=== PATIENT | female | born 1940 | race Caucasian/White ===

== ENCOUNTER 2016-04-24 19:37 | Emergency (ER) | payer MEDICARE ==
[~2016-04-24] VITALS: Ht 167.6 cm; Wt 68.0 kg
[~2016-04-24 19:37] MED LIST: DIAZ5 PO; LEVO88TA2 PO; MECL-62 PO; PAXI20TA PO; SIMV10TA PO; ZOFR4TAB PO
[2016-04-24 19:39] VITALS: BP 105/56; PULSE 95; RESP 16; TEMP 98; O2SAT 98
== END 2016-04-24 20:26 | disposition left against medical advice (07) ==
LOC: NED 19:37
DX: R11.0 Nausea (principal); Z53.21 Procedure and treatment not carried out due to patient leaving prior to being seen by health care provider
CPT/HCPCS: 99281

== ENCOUNTER → 2017-03-27 | Outpatient (CLI) | payer MEDICARE ==
--- NOTE | 2017-03-27 14:13 | RADRPT ---
EXAM DATE/TIME: 03/27/2017 12:57 [place] COMPARISON: No previous studies available for comparison. EXTERNAL COMPARISON : [facility], MR BRAIN W&W/O CONTRAST, March 02, 2017 INDICATIONS : Right sided tremors. Parkinsons disease. DOSE: 4.75 mCi Ioflupane Iodine-123 in 2.5 ml total volume MEDICATION(S): 130 mg Potasium Iodine PO one hour prior to injection SPECT IMAGIN.5 hrs. IMAGNG: SPECT/CT imaging with fusion was performed. RADIATION DOSE: 30.27 CTDIvol (mGy) MEDICAL HISTORY : None SURGICAL HISTORY : Tonsillectomy. ENCOUNTER: Initial ACUITY: 7 - 11 months PAIN SCALE: 0/10 LOCATION: Head. TECHNIQUE: SPECT imaging of the brain was performed in sagittal, axial and coronal planes. Attenuation correctio n was performed with computed tomography and both the attenuation correction and non-attenuation rolan ected data sets were reviewed. FINDINGS: Borderline positive with only radiotracer confined to the head of the caudate. CONCLUSION: Borderline positive as described above George Carlson MD FACR on March 27, 2017 at 14:01 Board Certified Radiologist. This report was verified electronically.
== END ==
LOC: HRAD 07:51
PROVIDERS: ATTEND Specialist
DX: G20 Parkinson's disease (principal)
CPT/HCPCS: 78607; A9584

== ENCOUNTER 2017-10-04 11:02 | Observation (INO) | payer MEDICARE ==
[2017-10-04] VITALS (7 sets, daily range): BP systolic 111–135; BP diastolic 59–68; PULSE 72–81; RESP 16–21; TEMP 97.4–98.6; O2SAT 96–100
[~2017-10-04] VITALS: Ht 163.8 cm; Wt 55.0 kg
[2017-10-04] MEDS ORDERED: DIAZ2TAB PO (12:13)
[2017-10-04] MEDS ORDERED: LEVO.075 PO (12:13)
[2017-10-04] MEDS ORDERED: PROP10TA6 PO (12:13)
[2017-10-04 12:32] LABS: AUTOMATED NEUTROPHIL # 4.7 TH/MM3 (1.8-7.7); BASOPHIL # 0.1 TH/MM3 (0-0.2); BASOPHIL % 1.4 % (0.0-2.0); EOSINOPHIL # 0.1 TH/MM3 (0-0.4); HEMATOCRIT 39.5 % (35.0-46.0); HEMOGLOBIN 13.3 GM/DL (11.6-15.3); LYMPH % 23.1 % (9.0-44.0); LYMPHOCYTE # 1.6 TH/MM3 (1.0-4.8); MEAN CELL VOLUME 92.8 FL (80.0-100.0); MEAN CORPUSCULAR HEMOGLOBIN 31.3 PG (27.0-34.0); MEAN CORPUSCULAR HGB CONC 33.7 % (32.0-36.0); MEAN PLATELET VOLUME 8.2 FL (7.0-11.0); MONO % 4.8 % (0.0-8.0); MONOCYTE # 0.3 TH/MM3 (0-0.9); NEUT % 69.7 % (16.0-70.0); PLATELET COUNT 318 TH/MM3 (150-450); RED BLOOD COUNT 4.26 MIL/MM3 (4.00-5.30); RED CELL DISTRIBUTION WIDTH 13.6 % (11.6-17.2); WHITE BLOOD COUNT 6.7 TH/MM3 (4.0-11.0)
--- NOTE | 2017-10-04 12:39 | PD ---
HPI Chief Complaint: Anxiety Time Seen by Provider: 11:19 Travel History International Travel<30 days: No Contact w/Intl Traveler<30days: No Traveled to known affect area: No History of Present Illness HPI This is a 77 year old female who presents to the emergency department with tremor. Pt. reports that over the past week she has had increasing tremor on the right side of her body to the point where she feels like she can't control her movements, and she has difficulty sitting still. Her symptoms are constant and have been worsening. She says she has been having some resting tremor in her right hand and was evaluated for possible Parkinson's disease. She follows with Dr. Canada and saw him earlier this week. She had been weaned off of Klonopin 2 weeks ago so she was concerned some of her worsening symptoms were due to benzodiazepene withdrawal so she was initiated on Diazepam and Propanolol for essential tremor. Symptoms have worsened despite this treatment. PFSH Past Medical History Blood Disorders: No Anxiety: Yes (PANIC ATTACKS) Heart Rhythm Problems: No Cancer: No Cardiac Catheterization: Yes Cardiovascular Problems: Yes High Cholesterol: Yes Congestive Heart Failure: No Cerebrovascular Accident: No Diabetes: No Diminished Hearing: No Endocrine: Yes GERD: No Genitourinary: Yes (Hx of HEMATURIA) Hiatal Hernia: No Hypertension: No Immune Disorder: No Kidney Stones: Yes Musculoskeletal: Yes Neurologic: Yes (MENIERES DISEASE, CAROTID STENOSIS) Psychiatric: Yes Reproductive: No Respiratory: No Immunizations Current: Yes (SHINGLES) Migraines: No Myocardial Infarction: No Renal Failure: No Sleep Apnea: Yes Thyroid Disease: Yes (HYPOTHYROID) Ulcer: No Tetanus Vaccination: Unknown Influenza Vaccination: Yes Menopausal: Yes : 2 Para: 2 Past Surgical History Abdominal Surgery: No Cardiac Surgery: No Coronary Artery Bypass Graft: No Ear Surgery: No Endocrine Surgery: No Eye Surgery: No Genitourinary Surgery: No Gynecologic Surgery: No Oral Surgery: Yes (TONSILLECTOMY) Thoracic Surgery: No Tonsillectomy: Yes Other Surgery: Yes (TONSILLECTOMY) Social History Alcohol Use: No Tobacco Use: No (quit after college years smoked cigs) Substance Use: No Allergies-Medications (Allergen,Severity, Reaction): Coded Allergies: No Known Allergies (Verified , 04/24/16) Reported Meds & Prescriptions Reported Meds & Active Scripts Active Reported Propranolol (Propranolol HCl) 10 Mg Tab 10 Mg PO DAILY Diazepam 2 Mg Tab 4 Mg PO BID PRN Synthroid (Levothyroxine Sodium) 75 Mcg Tab 75 Mcg PO DAILY Review of Systems Except as stated in HPI: all other systems reviewed are Neg Physical Exam Narrative GENERAL:Well appearing, no acute distress SKIN: Focused skin assessment warm and dry. HEAD: Atraumatic. Normocephalic. EYES: Pupils equal and round. No injection or drainage. ENT: Moist mucous membranes NECK: Trachea midline. CARDIOVASCULAR: Regular rate and rhythm. No murmur appreciated. RESPIRATORY: Clear to auscultation. Breath sounds equal bilaterally. GASTROINTESTINAL: Abdomen soft, non-tender, nondistended. MUSCULOSKELETAL: No obvious deformities. NEUROLOGICAL: Awake and alert. No obvious cranial nerve deficits. Involuntary rhythmic movement of the right leg and right arm. PSYCHIATRIC: Appropriate mood and affect; insight and judgment normal. Data Data Last Documented VS Vital Signs Date Time Temp Pulse Resp B/P (MAP) Pulse Ox O2 Delivery O2 Flow Rate FiO2 10/04/17 12:09 17 10/04/17 11:14 97.4 73 120/65 (83) 100 Orders Orders Complete Blood Count With Diff (10/04/17 11:41) Comprehensive Metabolic Panel (10/04/17 11:41) ^ Insert Iv (10/04/17 11:41) Thyroid Stimulating Hormone (10/04/17 11:41) Diazepam (Valium) (10/04/17 13:45) Carbidopa-Levodopa 25-100 Mg (Sinemet 25 (10/04/17 13:45) Admit Order (Ed Use Only) (10/04/17 14:11) Labs Laboratory Tests Test 10/04/17 12:20 White Blood Count 6.7 TH/MM3 Red Blood Count 4.26 MIL/MM3 Hemoglobin 13.3 GM/DL Hematocrit 39.5 % Mean Corpuscular Volume 92.8 FL Mean Corpuscular Hemoglobin 31.3 PG Mean Corpuscular Hemoglobin Concent 33.7 % Red Cell Distribution Width 13.6 % Platelet Count 318 TH/MM3 Mean Platelet Volume 8.2 FL Neutrophils (%) (Auto) 69.7 % Lymphocytes (%) (Auto) 23.1 % Monocytes (%) (Auto) 4.8 % Eosinophils (%) (Auto) 1.0 % Basophils (%) (Auto) 1.4 % Neutrophils # (Auto) 4.7 TH/MM3 Lymphocytes # (Auto) 1.6 TH/MM3 Monocytes # (Auto) 0.3 TH/MM3 Eosinophils # (Auto) 0.1 TH/MM3 Basophils # (Auto) 0.1 TH/MM3 CBC Comment DIFF FINAL Differential Comment Blood Urea Nitrogen 10 MG/DL Creatinine 0.95 MG/DL Random Glucose 100 MG/DL Total Protein 7.2 GM/DL Albumin 3.9 GM/DL Calcium Level 8.9 MG/DL Alkaline Phosphatase 50 U/L Aspartate Amino Transf (AST/SGOT) 25 U/L Alanine Aminotransferase (ALT/SGPT) 28 U/L Total Bilirubin 0.6 MG/DL Sodium Level 141 MEQ/L Potassium Level 4.2 MEQ/L Chloride Level 104 MEQ/L Carbon Dioxide Level 27.5 MEQ/L Anion Gap 10 MEQ/L Estimat Glomerular Filtration Rate 57 ML/MIN Thyroid Stimulating Hormone 3rd Gen 1.380 uIU/ML MDM Medical Decision Making Medical Screen Exam Complete: Yes Emergency Medical Condition: Yes Interpretation(s) Afebrile, no tachycardia, normotensive No leukocytosis Electrolytes are reassuring TSH is normal Differential Diagnosis Anxiety, Parkinson's disease, essential tremor, chorea Narrative Course This is a 77-year-old female who presents to the emergency department with involuntary movements of her right torso, leg and arm which have been increasing in frequency over the past week ever since she discontinued Klonopin. Here labs are reassuring. I spoke to Dr. Canada who cares for her. He requests that she be placed in observation and that we obtain an MRI. He thinks it is reasonable to restart her on Sinemet and continue benzodiazepines as needed. He suspects this may be related to underlying Parkinson's disease. Diagnosis Primary Impression: Tremor Admitting Information Admitting Physician Requests: Observation Roopa Koroma MD Oct 04, 2017 12:39
[2017-10-04 12:59] LABS: ALKALINE PHOSPHATASE 50 U/L (45-117); TOTAL BILIRUBIN ADULT 0.6 MG/DL (0.2-1.0); TOTAL PROTEIN 7.2 GM/DL (6.4-8.2)
[2017-10-04 13:33] LABS: ALBUMIN 3.9 GM/DL (3.4-5.0); ALT (GPT) 28 U/L (10-53); AST (GOT) 25 U/L (15-37); BICARBONATE 27.5 MEQ/L (21.0-32.0); BLOOD UREA NITROGEN 10 MG/DL (7-18); CALCIUM 8.9 MG/DL (8.5-10.1); CHLORIDE 104 MEQ/L (98-107); CREATININE 0.95 MG/DL (0.50-1.00); GLOMERULAR FILTRATION RATE 57 ML/MIN (>89); GLUCOSE,RANDOM 100 MG/DL (74-106); SODIUM (NA) 141 MEQ/L (136-145)
[2017-10-04] MEDS ORDERED: CARBIDOPA/LEVODOPA 25 MG/100 MG TAB PO SCH (13:45)
[2017-10-04] MEDS ORDERED: DIAZEPAM 5 MG TAB PO ONE (13:45)
--- NOTE | 2017-10-04 14:16 | HHI.HP ---
[facility] Service Family Medicine Primary Care Physician Cisco Finn, DO Admission Diagnosis tremor Diagnoses: International Travel<30 Days: No Contact w/Intl Traveler<30days: No Known Affected Area: No History of Present Illness 77 y/o F presenting w/worsening tremor. First tremor started October of last year. Tremor is in the arm and right leg, is constant for the most part - occasionally during the day, it will stop for a few seconds. Started seeing Dr. Canada. Failed therapy for parkinson's, essential tremors, and anxiety. Went to [facility] for assessment, was told she did not have Parkinson's. Last visit to Dr. Canada was on Sunday, had been on clonidine for 3-4 months until then w/o any improvement. Was placed on valium and propranolol on last visit, dose was increased yesterday. Patient called Dr. Canada today, was told to go to the hospital for imaging. Patient has mild dementia per work-up w/neurology. No trauma or injury before sx. No changes in gait or posture, no urinary incontinence, no seizure hx or seizure like symptoms, no vision changes, slurring of speech, or weakness. No pain.No syncope. +palpitations and nausea. States she takes meclizine prn, but denies dizziness. Diagnosed w/gastroparesis in the past. Not sure she knows what anxiety is - does not endorse thoughts of worrying or thinking about the past. Sometimes can't remember how to spell certain words. Underwent MMSE and passed. Not sleeping well. + appetite loss since Feb 2016, lost about 45 lbs since then. Occasional burning sensation in bilateral arms, lasting seconds. Review of Systems Constitutional: DENIES: Diaphoretic episodes Eyes: DENIES: Blurred vision Ears, nose, mouth, throat: DENIES: Hearing loss Respiratory: DENIES: Cough, Shortness of breath Cardiovascular: DENIES: Chest pain Gastrointestinal: DENIES: Abdominal pain Genitourinary: DENIES: Urinary frequency Hematologic/lymphatic: DENIES: Bruising Immunologic/allergic: DENIES: Eczema Neurologic: DENIES: Headache, Localized weakness Past Family Social History Past Medical History Hypothyroidism Hx H.Pylori Past Surgical History Tonsillectomy as a child Reported Medications Reported Meds & Active Scripts Active Reported Propranolol (Propranolol HCl) 10 Mg Tab 10 Mg PO DAILY Diazepam 2 Mg Tab 4 Mg PO BID PRN Synthroid (Levothyroxine Sodium) 75 Mcg Tab 75 Mcg PO DAILY Allergies: Coded Allergies: No Known Allergies (Verified Allergy, Unknown, 10/04/17) Family History Dad: cancer Mom: cancer Social History No drinking, smoking, or drug use Physical Exam Vital Signs Vital Signs Date Time Temp Pulse Resp B/P (MAP) Pulse Ox O2 Delivery O2 Flow Rate FiO2 10/04/17 12:09 17 10/04/17 11:14 97.4 73 17 120/65 (83) 100 Physical Exam GENERAL: This is an elderly, anxious appearing white lady sitting up in bed. Shaking of the right arm and leg noted, involving movement of the hip. This periodically ceases when the patient is distracted or concentrating on something. SKIN: Cool and dry. EYES: Pupils equal round and reactive. ENT: Uvula midline. Airway patent. NECK: Trachea midline. Supple, nontender, no meningeal signs. CARDIOVASCULAR: Regular rate and rhythm without murmurs, gallops, or rubs. RESPIRATORY: Clear to auscultation. Breath sounds equal bilaterally. No wheezes , rales, or rhonchi. GASTROINTESTINAL: Abdomen soft, non-tender, nondistended. MUSCULOSKELETAL: Extremities without clubbing, cyanosis, or edema. NEUROLOGICAL: Awake and alert. Some difficulty w/moderate to long-term memory. Cranial nerves II through XII intact. Motor and sensory grossly within normal limits. Five out of 5 muscle strength in all muscle groups. Normal speech. Finger to nose testing wnl. Not able to obtain reflexes in the lower extremities. Laboratory Laboratory Tests Test 10/04/17 12:20 White Blood Count 6.7 Red Blood Count 4.26 Hemoglobin 13.3 Hematocrit 39.5 Mean Corpuscular Volume 92.8 Mean Corpuscular Hemoglobin 31.3 Mean Corpuscular Hemoglobin Concent 33.7 Red Cell Distribution Width 13.6 Platelet Count 318 Mean Platelet Volume 8.2 Neutrophils (%) (Auto) 69.7 Lymphocytes (%) (Auto) 23.1 Monocytes (%) (Auto) 4.8 Eosinophils (%) (Auto) 1.0 Basophils (%) (Auto) 1.4 Neutrophils # (Auto) 4.7 Lymphocytes # (Auto) 1.6 Monocytes # (Auto) 0.3 Eosinophils # (Auto) 0.1 Basophils # (Auto) 0.1 CBC Comment DIFF FINAL Differential Comment Blood Urea Nitrogen 10 Creatinine 0.95 Random Glucose 100 Total Protein 7.2 Albumin 3.9 Calcium Level 8.9 Alkaline Phosphatase 50 Aspartate Amino Transf (AST/SGOT) 25 Alanine Aminotransferase (ALT/SGPT) 28 Total Bilirubin 0.6 Sodium Level 141 Potassium Level 4.2 Chloride Level 104 Carbon Dioxide Level 27.5 Anion Gap 10 Estimat Glomerular Filtration Rate 57 Thyroid Stimulating Hormone 3rd Gen 1.380 Result Diagram: 10/04/17 1220 10/04/17 1220 Imaging Last 24 hours Impressions Brain MRI 10/04/17 0000 Signed Impressions: CONCLUSION: 1. Negative MR Brain with and without contrast. Caprini VTE Risk Assessment Caprini VTE Risk Assessment: Mod/High Risk (score >= 2) Caprini Risk Assessment Model Point Value = 1 Point Value = 2 Point Value = 3 Point Value = 5 Age 41-60 Minor surgery BMI > 25 kg/m2 Swollen legs Varicose veins or History of unexplained or recurrent spontaneous Oral contraceptives or hormone replacement Sepsis (< 1 month) Serious lung disease, including pneumonia (< 1 month) Abnormal pulmonary function Acute myocardial infarction Congestive heart failure (< 1 month) History of inflammatory bowel disease Medical patient at bed rest Age 61-74 Arthroscopic surgery Major open surgery (> 45 min) Laparoscopic surgery (> 45 min) Malignancy Confined to bed (> 72 hours) Immobilizing plaster cast Central venous access Age >= 75 History of VTE Family history of VTE Factor V Leiden Prothrombin [id number] Lupus anticoagulant Anticardiolipin antibodies Elevated serum homocysteine Heparin-induced thrombocytopenia Other congenital or acquired thrombophilia Stroke (< 1 month) Elective arthroplasty Hip, pelvis, or leg fracture Acute spinal cord injury (< 1 month) Prophylaxis Regimen Total Risk Factor Score Risk Level Prophylaxis Regimen 0-1 Low Early ambulation 2 Moderate Order ONE of the following: *Sequential Compression Device (SCD) *Heparin 5000 units SQ BID 3-4 Higher Order ONE of the following medications: *Heparin 5000 units SQ TID *Enoxaparin/Lovenox 40 mg SQ daily (WT < 150 kg, CrCl > 30 mL/min) *Enoxaparin/Lovenox 30 mg SQ daily (WT < 150 kg, CrCl > 10-29 mL/min) *Enoxaparin/Lovenox 30 mg SQ BID (WT < 150 kg, CrCl > 30 mL/min) AND/OR *Sequential Compression Device (SCD) 5 or more Highest Order ONE of the following medications: *Heparin 5000 units SQ TID (Preferred with Epidurals) *Enoxaparin/Lovenox 40 mg SQ daily (WT < 150 kg, CrCl > 30 mL/min) *Enoxaparin/Lovenox 30 mg SQ daily (WT < 150 kg, CrCl > 10-29 mL/min) *Enoxaparin/Lovenox 30 mg SQ BID (WT < 150 kg, CrCl > 30 mL/min) AND *Sequential Compression Device (SCD) Assessment and Plan Assessment and Plan 77 y/o F w/hx of hypothyroidism admitted to obs for worsening tremor and nausea. Spoke w/Dr. Canada in the ED. Based on discussion, will order MRI WWO contrast and initiate Sinemet TID and valium PRN. Order psych consult to further evaluate for anxiety. Problem List: (1) Intractable nausea and vomiting ICD Codes: R11.2 - Nausea with vomiting, unspecified Status: Acute Plan: Reglan prn May add meclizine if sx continue (2) Tremor ICD Codes: R25.1 - Tremor, unspecified Status: Acute Plan: MRI WWO Consult neuro Consult psych Sinemet TID Valium BID PRN (3) FEN Plan: Fluids: none Electrolytes: none Nutrition: reg DVT prophy: SCDs only GI prophy: not indicated Discussed case w/ED physician, Dr. Canada, Dr. Smalls, and Dr. Lane. Agreement w/treatment plan. Fidelina Burgess MD R1 Oct 04, 2017 14:15
[2017-10-04] MEDS ORDERED: LACTULOSE SYRUP 20 GM/30 ML CUP PO PRN (15:15)
[2017-10-04] MEDS ORDERED: SENNOSIDES 8.6 MG TAB PO PRN (15:15)
[2017-10-04] MEDS ORDERED: METOCLOPRAMIDE HCL 10 MG/2 ML VIAL IV PUSH PRN (15:15)
[2017-10-04] MEDS ORDERED: MAGNESIUM HYDROXIDE SUSP 30 ML CUP PO PRN (15:15)
[2017-10-04] MEDS ORDERED: SODIUM CHLORIDE 0.9% FLUSH 10 ML FLUSH IV FLUSH PRN (15:15)
[2017-10-04] MEDS ORDERED: NALOXONE HCL 0.4 MG/ML AMP IV PUSH PRN (15:15)
--- NOTE | 2017-10-04 15:57 | MB ---
cc: Ricardo Canada MD, PhD DATE: 10/04/2017 REASON FOR CONSULTATION: Tremors. HISTORY OF PRESENT ILLNESS: Ms. Pulido is a very pleasant 77-year-old female who has a long history of tremors, initially diagnosed as essential tremor versus early Parkinson's tremor. She previously had an MRI of the brain which was normal. A brain DANIELLE scan was suspicious for Parkinson's. She was tried in the past on levodopa/carbidopa as well as Requip with no improvement, was started on clonazepam about a year ago, which seemed to help the tremor somewhat, but then she developed lethargy, was being tapered off this and since then has developed severe anxiety with increasing tremor. The clonazepam was gradually weaned off and stopped completely about a week ago and her symptoms became worse in terms of anxiety with tremulousness. Her tremors have been both resting and sustention. She was started recently on Valium 2 mg b.i.d., but this did not help, so the dose was increased to 4 mg b.i.d., but she still complained of severe anxiety and tremulousness and presented to the emergency room. PHYSICAL EXAMINATION: VITAL SIGNS: Blood pressure 130/68, pulse 81, respiratory rate is 18, temperature 97 degrees. NEUROLOGICAL EXAMINATION: Higher cortical functions normal. Cranial nerves intact. Motor Exam: She has normal tone. I do not detect any cogwheeling. She has really no significant bradykinesia. She has normal strength in all major groups. She has tremors in the right upper extremity which appear to be at rest. LABORATORY DATA: The white count is 6700, hemoglobin 13.3, hematocrit 39.5%, platelet count 318,000. Sodium was 141, potassium 4.2, chloride 104, CO2 27.5. The BUN is 10, creatinine 0.95, GFR 57, glucose 100, calcium 8.9, AST 25, ALT is 28, alkaline phosphatase is 50. TSH is 1.38. IMPRESSION: Tremors as well as significant anxiety, possible early parkinsonism. RECOMMENDATION: Once again try Sinemet 25/100 t.i.d. Continue Valium p.r.n. We will also obtain an MRI of the brain. I also recommend psychiatry evaluation because of her anxiety. Thank you for asking me to see this nice patient. Ricardo Canada MD, PhD GA[place]/HILL[place] , 03:39 PM , 03:55 PM
[2017-10-04] MEDS ORDERED: GADODIAMIDE PF 287 MG/ML 5 ML VIAL (for RAD MRI) IVCONTRAST ONE (16:13)
--- NOTE | 2017-10-04 17:17 | RADRPT ---
EXAM DATE: 10/04/2017 4:15 PM EDT AGE/SEX: 77 years / Female INDICATIONS: . Multiple sclerosis. CLINICAL DATA: This is the patient's initial encounter. Patient reports that signs and symptoms have been present for 1 day and indicates a pain score of 0/10. MEDICAL/SURGICAL HISTORY: Hypothyroidism. Meniere's disease. Tonsillectomy. COMPARISON: No prior exams available for comparison. TECHNIQUE: Multiplanar, multisequence examination of the brain was performed without and with 11 ml O mniscan (gadodiamide) contrast as a single exam dose. FINDINGS: Cerebrum: The ventricles are normal for age. No evidence of midline shift, mass lesion, hemorrhage or acute infarction. No extraaxial fluid collections are seen. The pituitary gland and suprasellar cistern are normal in configuration. White Matter: No significant signal abnormalities are seen in the white matter. Posterior Fossa: The cerebellum and brainstem are intact. The 4th ventricle is midline. The cerebel lopontine angle is unremarkable. The cerebellar tonsils are normal in position. Diffusion Imaging: No focal areas of restricted diffusion are seen. No evidence of acute infarction . Extracranial: The visualized portions of the orbits and paranasal sinuses are unremarkable. Post Contrast: No abnormal areas of parenchymal or dural enhancement. No evidence of blood-brain ba rrier breakdown. CONCLUSION: 1. Negative MR Brain with and without contrast. Electronically signed by: Ajit Green MD 10/04/2017 5:15 PM EDT
[2017-10-04] MEDS: CARBIDOPA/LEVODOPA 25 MG/100 MG TAB PO SCH (22:30)
[2017-10-04] MEDS: SODIUM CHLORIDE 0.9% FLUSH 10 ML FLUSH IV FLUSH SCH (22:31)
[2017-10-05 04:27] VITALS: BP 120/57; PULSE 65; RESP 16; TEMP 97.7; O2SAT 99
[2017-10-05] MEDS ORDERED: LEVOTHYROXINE SODIUM 75 MCG TAB PO SCH (06:00)
[2017-10-05] MEDS: CARBIDOPA/LEVODOPA 25 MG/100 MG TAB PO SCH (07:22)
[2017-10-05 07:45] VITALS: BP 128/70; PULSE 78; RESP 18; TEMP 97.9; O2SAT 98
[2017-10-05] MEDS: SODIUM CHLORIDE 0.9% FLUSH 10 ML FLUSH IV FLUSH SCH (08:38)
--- NOTE | 2017-10-05 09:09 | HHI.PR ---
Review/Management Diagnosis Probable mild Parkinson"s with significant component of anxiety exacerbating tremor Plan Increase sinemet 25/100 to Q 6hr start valium 5 mg bid and prn Psychiatry consult Diagnosis/Plan: Subjective Subjective Comments No acute events reported She feels the sinemet does help the tremor. But when tremor starts, she c/o significant anxiety and this exacerbates tremor, causes nausea Active Medications Current Medications Medications (Trade) Dose Ordered Sig/Tiana Route Start Time Stop Time Status Last Admin (Sinemet 25-100 Mg) 1 tab ONCE PO 10/04/17 13:45 10/04/17 15:09 (Synthroid) 75 mcg DAILY@0600 PO 10/05/17 06:00 10/05/17 07:22 (Sinemet 25-100 Mg) 1 tab Q8HR PO 10/04/17 22:00 10/05/17 07:22 (Valium) 4 mg Q12H PRN PO 10/04/17 15:15 (NS Flush) 2 ml UNSCH PRN IV FLUSH 10/04/17 15:15 (NS Flush) 2 ml BID IV FLUSH 10/04/17 21:00 10/05/17 08:38 (Reglan Inj) 5 mg Q6H PRN IV PUSH 10/04/17 15:15 (Narcan Inj) 0.4 mg UNSCH PRN IV PUSH 10/04/17 15:15 (Milk Of Magnesia Liq) 30 ml Q12H PRN PO 10/04/17 15:15 (Senokot) 17.2 mg Q12H PRN PO 10/04/17 15:15 (Lactulose Liq) 30 ml DAILY PRN PO 10/04/17 15:15 Allergies Allergies Coded Allergies No Known Allergies (Verified Allergy, Unknown, 10/04/17) Exam I&O / VS Vital Signs Date Time Temp Pulse Resp B/P (MAP) Pulse Ox O2 Delivery O2 Flow Rate FiO2 10/05/17 07:45 97.9 78 18 128/70 (89) 98 10/05/17 04:27 97.7 65 16 120/57 (78) 99 10/04/17 23:45 97.7 77 16 113/59 (77) 98 10/04/17 20:49 98.6 74 16 111/66 (81) 96 10/04/17 19:27 98.4 74 16 135/64 (87) 97 10/04/17 18:07 97.7 72 21 116/61 (79) 98 10/04/17 15:48 81 17 130/68 (88) 99 10/04/17 15:12 81 18 130/68 (88) 99 Room Air 10/04/17 12:09 17 10/04/17 11:14 97.4 73 17 120/65 (83) 100 Exam Comments alert, speech normal Cn intact MOTOR 5/5 BUE, tremor R>L upper extremity at rest and with action Objective Radiology Results MRI brain is normal Micro and Labs Laboratory Tests Test 10/04/17 12:20 White Blood Count 6.7 Red Blood Count 4.26 Hemoglobin 13.3 Hematocrit 39.5 Mean Corpuscular Volume 92.8 Mean Corpuscular Hemoglobin 31.3 Mean Corpuscular Hemoglobin Concent 33.7 Red Cell Distribution Width 13.6 Platelet Count 318 Mean Platelet Volume 8.2 Neutrophils (%) (Auto) 69.7 Lymphocytes (%) (Auto) 23.1 Monocytes (%) (Auto) 4.8 Eosinophils (%) (Auto) 1.0 Basophils (%) (Auto) 1.4 Neutrophils # (Auto) 4.7 Lymphocytes # (Auto) 1.6 Monocytes # (Auto) 0.3 Eosinophils # (Auto) 0.1 Basophils # (Auto) 0.1 CBC Comment DIFF FINAL Differential Comment Blood Urea Nitrogen 10 Creatinine 0.95 Random Glucose 100 Total Protein 7.2 Albumin 3.9 Calcium Level 8.9 Alkaline Phosphatase 50 Aspartate Amino Transf (AST/SGOT) 25 Alanine Aminotransferase (ALT/SGPT) 28 Total Bilirubin 0.6 Sodium Level 141 Potassium Level 4.2 Chloride Level 104 Carbon Dioxide Level 27.5 Anion Gap 10 Estimat Glomerular Filtration Rate 57 Thyroid Stimulating Hormone 3rd Gen 1.380 Rciardo Canada MD PhD Oct 05, 2017 09:09
[2017-10-05] MEDS ORDERED: DIAZEPAM 5 MG TAB PO SCH (09:15)
[2017-10-05 12:00] VITALS: BP 125/59; PULSE 75; RESP 18; TEMP 97.9; O2SAT 99
[2017-10-05] MEDS ORDERED: CARBIDOPA/LEVODOPA 25 MG/100 MG TAB PO SCH (12:00)
--- NOTE | 2017-10-05 12:59 | PD.PN.STU ---
Subjective Remarks The patient is a 77 year-old female born in [place] that currently lives in [place] with her and has two children with a past medical history of hypothyroidism for which she takes Synthroid 0.75 Mcg daily and is being seen today for a resting tremor on the right arm and leg that occurs constantly for the full day. She states that these episodes of tremor occur nearly every day and first started over a year ago. She feels out of control during these episodes but denies feelings of dread, excessive worry and racing heartbeat when these episodes occur. The patient was resting in her bed at the beginning of the exam and slight tremor was seen but during the course of the history intake, no tremor was noted. She states her mood is now mellow and appears calm, cooperative and engaged. She denies suicidal and homicidal ideation and denies previous suicidal ideations, denies psych history , denies illicit drug use and denies history of sexual or childhood abuse. She has failed therapy for Parkinsons for which she was prescribed Levodopa and Requip, and in a separate visit with the [facility] afterwards, was told that she did not have Parkinsons. She has also been seeing Dr. Canada for treating anxiety with Clonopin a year ago but her tremors were not improving and therefore wanted to be weaned off, starting 2 weeks ago. Her tremors worsened and was concerned this was a result of benzodiazepine withdrawal so she was initiated on Diazepam and Propanolol. She is very concerned that she still has Parkinson's and has been to multiple doctors for a second opinion and is currently looking for a psychiatrist for her anxiety. Objective Vitals Appearance: Well groomed, cooperative, engaged, good eye contact, no tremors on exam and patient appears to be resting calmly in bed Speech: Normal, relevant Mood: Feeling good, mellow Affect: Euthymic, appropriate to context Thought Process: Logical, linear Thought Content: No SI, HI Orientation: A&Ox3 Vital Signs Date Time Temp Pulse Resp B/P (MAP) Pulse Ox O2 Delivery O2 Flow Rate FiO2 10/05/17 12:00 97.9 75 18 125/59 (81) 99 10/05/17 07:45 97.9 78 18 128/70 (89) 98 10/05/17 04:27 97.7 65 16 120/57 (78) 99 10/04/17 23:45 97.7 77 16 113/59 (77) 98 10/04/17 20:49 98.6 74 16 111/66 (81) 96 10/04/17 19:27 98.4 74 16 135/64 (87) 97 10/04/17 18:07 97.7 72 21 116/61 (79) 98 10/04/17 15:48 81 17 130/68 (88) 99 10/04/17 15:12 81 18 130/68 (88) 99 Room Air I/O 10/04/17 10/04/17 10/04/17 10/05/17 10/05/17 10/05/17 07:00 15:00 23:00 07:00 15:00 23:00 Output Total 200 ml Balance -200 ml Output Urine Total 200 ml Result Diagram: 10/04/17 1220 10/04/17 1220 Dianne Peck M3 Oct 05, 2017 12:59
[2017-10-05] MEDS: DIAZEPAM 2 MG TAB PO PRN ×3 (13:26→13:29)
--- NOTE | 2017-10-05 13:37 | HHI.FPPN ---
Subjective Remarks Patient seen and examined with . and daughter present. Have discussed with in-house psychiatrist who recommends outpatient psychiatric management for anxiety. This is a 77-year-old female who presented yesterday with unilateral tremor. Apparently had been on Klonopin chronically in the past and was being tapered off this by her neurologist Dr. Canada. She had recently been started on diazepam and primidone by Dr. Canada. Seen this morning, she still notes that she has a little tremor and some anxiety but describes herself as being very healthy. She would like to see a psychiatrist as an outpatient and she was given a list of local psychiatrists name and phone numbers. She denies any chest pain no shortness of breath and feels confident about going home. Objective Vitals Vital Signs Date Time Temp Pulse Resp B/P (MAP) Pulse Ox O2 Delivery O2 Flow Rate FiO2 10/05/17 12:00 97.9 75 18 125/59 (81) 99 10/05/17 07:45 97.9 78 18 128/70 (89) 98 10/05/17 04:27 97.7 65 16 120/57 (78) 99 10/04/17 23:45 97.7 77 16 113/59 (77) 98 10/04/17 20:49 98.6 74 16 111/66 (81) 96 10/04/17 19:27 98.4 74 16 135/64 (87) 97 10/04/17 18:07 97.7 72 21 116/61 (79) 98 10/04/17 15:48 81 17 130/68 (88) 99 10/04/17 15:12 81 18 130/68 (88) 99 Room Air I/O 10/04/17 10/04/17 10/04/17 10/05/17 10/05/17 10/05/17 07:00 15:00 23:00 07:00 15:00 23:00 Output Total 200 ml Balance -200 ml Output Urine Total 200 ml Result Diagram: 10/04/17 1220 10/04/17 1220 Objective Remarks O. CONSTITUTIONAL/GEN: normally nourished, in NAD. EYES: conjunctiva normal, PERRLA, EOMI. ENT: Mouth and pharynx normal. NECK: Supple LUNGS: clear A-P, respiratory effort is normal. CARDIOVASCULAR: RR without murmur or gallop. No significant edema. GI/ABD: soft without masses, without organomegaly. Active bowel sounds NEURO: No focal deficits. SKIN: color normal, no rashes noted. HEME/LYMPH: no bruising, petechia or significant adenopathy MUSC: back is normal in appearance. Extremities are normal in appearance. PSYCH/MENTAL STATUS: Alert and oriented x 3. A/P Assessment and Plan 77 y/o F w/hx of hypothyroidism admitted to obs for worsening tremor and nausea. Spoke w/Dr. Canada in the ED. Based on discussion, will order MRI WWO contrast and initiate Sinemet TID and valium PRN. Order psych consult to further evaluate for anxiety. Attending Attestation Patient seen and examined. Case reviewed and discussed with the resident team. Agree with plan of care as discussed with me and documented in the resident note. Problem List: (1) Parkinsons disease ICD Codes: G20 - Parkinson's disease Plan: Sinemet 25/100 3 times daily Follow-up with Dr. Canada as an outpatient. (2) Tremor ICD Codes: R25.1 - Tremor, unspecified Status: Chronic Plan: Sinemet TID Valium BID PRN per Dr. Canada (3) Anxiety ICD Codes: F41.9 - Anxiety disorder, unspecified Status: Chronic Plan: Per in-house psychiatry, recommend that patient follow-up with a psychiatrist as an outpatient. Michelle Smalls MD Oct 05, 2017 13:37
[2017-10-05] MEDS ORDERED: Carbidopa-Levodopa 25-100 Mg PO (13:46)
--- NOTE | 2017-10-05 13:47 | HHI.DCPOC ---
Discharge Care Plan Diagnosis: (1) Parkinsons disease (2) Tremor Goals to Promote Your Health * To prevent worsening of your condition and complications * To maintain your health at the optimal level Directions to Meet Your Goals Take your medications as prescribed Follow your dietary instruction Follow activity as directed Keep your appointments as scheduled Take your immunizations and boosters as scheduled If your symptoms worsen call your PCP, if no PCP go to Urgent Care Center or Emergency Room Smoking is Dangerous to Your Health. Avoid second hand smoke Call the 24-hour hour crisis hotline for domestic abuse at Fidelina Burgess MD R1 Oct 05, 2017 13:47
--- NOTE | 2017-10-05 14:00 | PD.PSY.CON ---
Provisional Diagnosis Admission Date Oct 04, 2017 at 14:12 [place] I. Unspecified anxiety, R/O JOVITA, R/O panic disorder, R/O Conversation disorder, R/ O Sedative-hypnotic dependance/withdrawal, R/O Concisus simulation (malingering) [place] II. Deferred [place] III. Hypothyroidism, essential tremors?, Parkinson's? [place] IV. History of multiple outpatient psychiatrists, multiple failure to anxiety medications [place] V. 55 History of Present Illness Service Psychiatry Consult Requested By Medicine Reason for Consult Rule out psychological-induced tremor Primary Care Physician Cisco Finn, DO HPI Note written by Dianne Peck, reviewed and edited by me. The patient is a 77 year-old woman, born in [place] that currently lives in [place] with her , retired, has two children with a past psychiatric history of anxiety, has tried multiple benzodiazepines and SSRIs, but not admission, no SAs, medical history of hypothyroidism for which she takes Synthroid 0.75 Mcg daily and is being seen today for a resting tremor on the right arm and leg that occurs constantly for the full day. She states that these episodes of tremor occur nearly every day and first started over a year ago. She feels out of control during these episodes but denies feelings of dread, excessive worry and racing heartbeat when these episodes occur. The patient was resting in her bed at the beginning of the exam and slight tremor was seen but during the course of the history intake, no tremor was noted. She states her mood is now mellow and appears calm, cooperative and engaged. However, as per conversation with nurse, the patient has being irritable and at times verbally hostile. She denies suicidal and homicidal ideation and denies previous suicidal ideations, denies psych history, denies illicit drug use and denies history of sexual or childhood abuse. She has failed therapy for Parkinsons for which she was prescribed Levodopa and Requip, and in a separate visit with the [facility] afterwards, was told that she did not have Parkinsons. She has also been seeing Dr. Canada for treating anxiety with Clonopin a year ago but her tremors were not improving and therefore wanted to be weaned off, starting 2 weeks ago. Her tremors worsened and was concerned this was a result of benzodiazepine withdrawal so she was initiated on Diazepam and Propanolol. She is very concerned that she still has Parkinson's and has been to multiple doctors for a second opinion and is currently looking for a psychiatrist for her anxiety. During my evaluation the patient is logical, coherent, relevant, goal-directed, oriented 3. No attention deficit, no fluctuation of consciousness, no paranoia or delusions present. Review of Systems Constitutional: DENIES: Diaphoretic episodes, Fatigue, Fever, Weight gain, Weight loss, Chills, Dizziness, Change in appetite, Night Sweats Endocrine: DENIES: Abnorml menstrual pattern, Heat/cold intolerance, Polydipsia , Polyuria, Polyphagia Eyes: DENIES: Blurred vision, Diplopia, Eye inflammation, Eye pain, Vision loss , Photosensitivity, Double Vision Ears, nose, mouth, throat: DENIES: Tinnitus, Hearing loss, Vertigo, Nasal discharge, Oral lesions, Throat pain, Hoarseness, Ear Pain, Running Nose, Epistaxis, Sinus Pain, Toothache, Odynophagia Respiratory: DENIES: Apneas, Cough, Snoring, Wheezing, Hemoptysis, Sputum production, Shortness of breath Cardiovascular: DENIES: Chest pain, Palpitations, Syncope, Dyspnea on Exertion , PND, Lower Extremity Edema, Orthopnea, Claudication Gastrointestinal: DENIES: Abdominal pain, Black stools, Bloody stools, Constipation, Diarrhea, Nausea, Vomiting, Difficulty Swallowing, Anorexia Genitourinary: DENIES: Abnormal vaginal bleeding, Dysmenorrhea, Dyspareunia, Sexual dysfunction, Urinary frequency, Urinary incontinence, Urgency, Hematuria , Dysuria, Nocturia, Vaginal discharge Musculoskeletal: DENIES: Joint pain, Muscle aches, Stiffness, Joint Swelling, Back pain, Neck pain Integumentary: DENIES: Abnormal pigmentation, Pruritus, Rash, Nail changes, Breast masses, Breast skin changes, Nipple discharge Hematologic/lymphatic: DENIES: Bruising, Lymphadenopathy Immunologic/allergic: DENIES: Eczema, Urticaria Neurologic: COMPLAINS OF: Tremor, DENIES: Abnormal gait, Headache, Localized weakness, Paresthesias, Seizures, Speech Problems, Poor Balance Psychiatric: COMPLAINS OF: Anxiety, DENIES: Confusion, Mood changes, Depression , Hallucinations, Agitation, Suicidal Ideation, Homicidal Ideation, Delusions Past Family Social History Coded Allergies: No Known Allergies (Verified Allergy, Unknown, 10/04/17) Reported Medications Propranolol (Propranolol) 10 Mg Tab, 10 MG PO DAILY, #60 TAB 0 Refills 10/04/17 Diazepam (Diazepam) 2 Mg Tab, 4 MG PO BID Y for ANXIETY, TAB 0 Refills 10/04/17 Levothyroxine (Synthroid) 75 Mcg Tab, 75 MCG PO DAILY for Thyroid, #30 TAB 0 Refills 10/04/17 Discontinued Reported Medications Simvastatin (Simvastatin) 10 Mg Tab, 10 MG PO HS for Cholesterol Management, # 30 TAB 0 Refills 04/11/16 Levothyroxine (Levothyroxine) 88 Mcg Tab, 88 MCG PO DAILY for Thyroid, #30 TAB 0 Refills 04/11/16 Ondansetron (Zofran) 4 Mg Tab, 4 MG PO Q8HR Y for NAUSEA, TAB 0 Refills 04/11/16 Meclizine (Meclizine) 25 Mg Tab, 25 MG PO DIRECTED Y for DIZZINESS, TAB 0 Refills 04/11/16 Diazepam (Valium) 5 Mg Tab, 5 MG PO TID Y for DIZZINESS, TAB 0 Refills 04/11/16 Current Medications Medications (Trade) Dose Ordered Sig/Tiana Route Start Time Stop Time Status Last Admin (Synthroid) 75 mcg DAILY@0600 PO 10/05/17 06:00 10/05/17 07:22 (Valium) 4 mg Q12H PRN PO 10/04/17 15:15 10/05/17 13:29 (NS Flush) 2 ml UNSCH PRN IV FLUSH 10/04/17 15:15 (NS Flush) 2 ml BID IV FLUSH 10/04/17 21:00 10/05/17 08:38 (Reglan Inj) 5 mg Q6H PRN IV PUSH 10/04/17 15:15 (Narcan Inj) 0.4 mg UNSCH PRN IV PUSH 10/04/17 15:15 (Milk Of Magnesia Liq) 30 ml Q12H PRN PO 10/04/17 15:15 (Senokot) 17.2 mg Q12H PRN PO 10/04/17 15:15 (Lactulose Liq) 30 ml DAILY PRN PO 10/04/17 15:15 (Sinemet 25-100 Mg) 1 tab Q6HR PO 10/05/17 12:00 10/05/17 13:08 (Valium) 5 mg Q12HR PO 10/05/17 09:15 Family Psych History No family psychiatric history Social History The patient was born and raised in [place], she lives in [place] with her , she is retired, has 2 kids, her highest level of education is 2 years college Patient's Strengths (min. 2) Family support Physical Exam At the moment of this evaluation the patient does not present any tremors, no EPS, no stiffness, no withdrawal symptoms Vital Signs Vital Signs Date Time Temp Pulse Resp B/P (MAP) Pulse Ox O2 Delivery O2 Flow Rate FiO2 10/05/17 12:00 97.9 75 18 125/59 (81) 99 10/04/17 15:12 Room Air Mental Status Examination Appearance: Appropriate Consciousness: Alert Orientation: x4 Motor Activity: Normal gait Speech: Unremarkable Language: Adequate Fund of Knowledge: Adequate Attention and Concentration: Adequate Memory: Unremarkable Mood: Appropriate Affect: Appropriate Thought Process & Associations: Intact Thought Content: Appropriate Hallucination Type: None Delusion Type: None Suicidal Ideation: No Suicidal Plan: No Suicidal Intention: No Homicidal Ideation: No Homicidal Plan: No Homicidal Intention: No Insight: Adequate Judgment: Adequate Assessment & Plan Problem List: (1) Anxiety state, unspecified ICD Codes: F41.1 - Generalized anxiety disorder Assessment & Plan: On my psychiatric evaluation today the patient does not present any evidence of objective or subjective acute symptomatology of depression, anxiety, heriberto or psychosis. The patient herself denies depressive symptoms, anhedonia, hopelessness, helplessness, suicidal and homicidal ideation , visual and auditory hallucinations. During the evaluation the patient is goal -directed, future oriented, logical, coherent and relevant. The patient is oriented 3, no attention deficit, no fluctuation of consciousness, no loosening of associations. During our evaluation the patient does not present any objective or visible tremors, she denies any somatic symptoms at the moment. The patient reports that her tremors are episodic, which she denies impending doom, racing thoughts, palpitation, sweating, and no other symptoms that might suggest a panic disorder. She denies recent or past stressful event in her life. She denies the use of illegal drugs and alcohol. She does have psychiatric history of anxiety and depression, she has been visiting different psychiatrist in the last months to treat anxiety, he has been try a multiple psychotropics including several benzodiazepines, clonazepam, diazepam, Xanax, temazepam, lorazepam, without "a good success or response". She also has look for several second opinions for the etiology of her tremors, and Parkinson disease and also essential tremor has been ruled out. There is no enough evidence based on this evaluation that current presentation is etiologically related with psychological factors, but there is some elements in the psychiatric history to suggest that an anxiety disorder versus compression disorder versus benzodiazepine dependence should be carefully explored. This reason while the patient is in the hospital I highly suggested to have her in a CIWA protocol. even conscious simulation with secondary gain of use in the hospital as a source of narcotics is a possibility, but every single afford to rule out medical reasons for this presentation must be done. She does not meet criteria for involuntary psychiatric admission. The patient can continue the treatment of anxiety as an outpatient. Brief supportive psychotherapy, psychoeducation and motivation provided. Patient was also provided with referrals for outpatient psychiatrist in the community. Assessment & Plan Estimated LOS: Blaine Rendon MD Oct 05, 2017 14:00
== END 2017-10-05 16:26 | disposition home or self-care (01) ==
LOC: NEPD 11:02 → NEDA 14:12 → NEPGCP 15:59
PROVIDERS: ADMIT Family Medicine; ATTEND Family Medicine
DX: R25.1 Tremor, unspecified (principal); F41.0 Panic disorder [episodic paroxysmal anxiety]; R11.2 Nausea with vomiting, unspecified; E78.00 Pure hypercholesterolemia, unspecified; H81.09 Meniere's disease, unspecified ear; I65.29 Occlusion and stenosis of unspecified carotid artery; Z79.899 Other long term (current) drug therapy; K31.84 Gastroparesis; R63.0 Anorexia; R20.8 Other disturbances of skin sensation; E03.9 Hypothyroidism, unspecified; R45.4 Irritability and anger
CPT/HCPCS: 70553; 80053; 84443; 85025; 99285; A9579; G0378